=== PATIENT | female | born 1980 | race Caucasian/White ===

== ENCOUNTER 2017-12-14 09:03 | Emergency (ER) | payer OTHER ==
[~2017-12-14] VITALS: Ht 165.1 cm; Wt 104.3 kg
[2017-12-14 09:12] VITALS: BP_SYST 127
[2017-12-14] MEDS ORDERED: LIDOCAINE VISCOUS 2%, 15 ML UDC MM ONE (10:00)
[2017-12-14 10:20] VITALS: BP_SYST 127
== END 2017-12-14 10:21 | disposition home or self-care (01) ==
LOC: SED 09:03
DX: J06.9 Acute upper respiratory infection, unspecified (principal); R03.0 Elevated blood-pressure reading, without diagnosis of hypertension; Z88.6 Allergy status to analgesic agent
CPT/HCPCS: 36415; 86403; 87081; 99284; J2001